=== PATIENT | male | born 1950 | race Caucasian/White ===

== ENCOUNTER → 2023-12-02 | Outpatient (CLI) | payer SELFPAY ==
--- NOTE | 2023-12-02 13:42 | CT_ITS ---
STUDY: CT CHEST WITHOUT CONTRAST REASON FOR EXAM: Male, 73 years old. CAD SCREENING, INTERMEDIATE RISK RADIATION DOSAGE (If Supplied By Facility): CTDIvol = ( 12.19 ) mGy, DLP = ( 219.42 ) mGycm TECHNIQUE: Transaxial imaging was performed without the administration of intravenous contrast material. Cardiac over read examination. Individualized dose optimization techniques were used for this CT. COMPARISON: No relevant priors. FINDINGS: CHEST The lungs are normal. There is no demonstrated pleural abnormality. There are calcifications of the coronary arteries. Normal mediastinum. Normal hilar regions. Normal unenhanced pulmonary arteries. Normal aorta arch and descending thoracic aorta. There are degenerative changes of the thoracic spine. There is no demonstrated abnormality of the visualized upper abdomen. CT/Limited Chest CT Cardiac Only IMPRESSION: Coronary artery calcification. Electronically Signed: Maury Whittington MD at 15:14 EDT ,
--- NOTE | 2023-12-08 06:35 | CA.SCORE ---
Calcium Scoring Date of Study:: 12/02/23 Indications Indications: Coronary artery disease screening. Intermediate risk. Coronary Calcium Scoring: High-resolution Computed Tomographic imaging of the chest was performed on [12/02/2023], with particular attention paid to the coronary arteries. Images from the examination were analyzed for the presence and extent of coronary artery calcification , using coronary calcium quantification software. The patient tolerated the procedure well and there were no complications. The results of the coronary calcification analysis are provided below. Findings Coronary Artery Left Main (LM): 75.8 Left Anterior Descending (LAD): 868 Left Circumflex (LCX): 215 Right Coronary Artery (RCA): 804 Total Agatston Score: 1,962.8 Percentile Ranking: Greater than 90th percentile. Calcium Scoring Interpretation: Different methods to categorize the overall amount of coronary plaque. Overall amount CAC SIS Visual of coronary plaque P1 Mild -100 <2 1-2 vessels with mild amount of plaque P2 Moderate 101-300 3-4 1-2 vessels with moderate amount, 3 vessels with mild amount of plaque P3 Severe 301-999 5-7 3 vessels with moderate amount, 1 vessel with severe amount of plaque P4 Extensive >1000 >8 2-3 vessels with severe amount of plaque Calcium Score: Extensive: 2-3 vessels w/severe amount of plaque Conclusion: Extensive amount of plaque noted in at least 2 coronary artery territories.
== END | disposition home or self-care (01) ==
PROVIDERS: PCP Family Medicine; Referring Provider Family Medicine; Visit Provider Family Medicine
DX: Z13.6 Encounter for screening for cardiovascular disorders (principal)
CPT/HCPCS: 75571; 76380

== ENCOUNTER → 2024-02-25 | Outpatient (CLI) | payer MEDICARE, SELFPAY ==
--- NOTE | 2024-02-25 13:38 | STRESSREP ---
Stress Test Report Treadmill/nuclear myocardial perfusion stress test. Indication; 73-year-old patient with history of hypertension Hyperlipidemia Has elevated calcium score family history of CAD father had a bypass surgery does not have a cardiac history Particular no history of bypass or coronary artery stent. Patient exercised according to standard Juan protocol Stress protocol: Resting EKG demonstrates. Normal sinus rhythm. Patient exercised for standard Juan protocol and reached a target heart rate. No symptoms of chest pain reported EKG monitoring was performed. The maximum heart rate attained was 164 bpm which was 100 06% of maximum predicted heart . Stress EKG showed[, no significant change from the resting EKG, with maximum heart rate of 164 bpm. Arrhythmia: Infrequent PVCs Symptoms: Patient had no symptoms of chest pain Blood pressure at rest: 140/88 mmHg blood pressure at the end of stress: 172/84 mmHg Myocardial perfusion protocol. 13.2 mCi ]of Technetium 99m Sestamibi was injected at rest. Following maximal stress and exceeding his target heart rate. 40.4 mCi ]of Technetium 99m sestamibi was injected. Stress images were obtained stress and rest images were reconstructed and compared in the short axis vertical and horizontal long axis. Gated images were also obtained Perfusion SPECT analysis: Review of the images demonstrate normal uptake of sestamibi at rest, post stress images demonstrate similar uptake of sestamibi to the resting images, homogeneous tracer uptake With no evidence of reversible myocardial ischemia. Gated SPECT analysis: The gated ejection fraction is 74% Normal LV wall motion Normal LV systolic function Conclusion: Normal treadmill myocardial fusion study with no evidence of significant change in the EKG and no symptoms of chest pain Infrequent PVCs demonstrated Gated SPECT images revealed normal LV systolic function. No prior study to compare Sam Cardoza MD,FACC,[id number]
== END | disposition home or self-care (01) ==
PROVIDERS: PCP Family Medicine; Referring Provider Family Medicine; Visit Provider Family Medicine
DX: Z13.6 Encounter for screening for cardiovascular disorders (principal); I10 Essential (primary) hypertension; E78.00 Pure hypercholesterolemia, unspecified; Z87.891 Personal history of nicotine dependence; I25.10 Atherosclerotic heart disease of native coronary artery without angina pectoris
CPT/HCPCS: 78452; 93017; A9500; A4216